=== PATIENT | female | born 1980 | race Caucasian/White ===

== ENCOUNTER 2017-03-09 18:37 | Emergency (ER) | payer OTHER ==
[2017-03-09] MEDS ORDERED: ONDANSETRON 4 MG/2 ML VIAL IVP ONE (18:55)
[2017-03-09] MEDS ORDERED: NS 1,000 ML IV ONE (18:55)
[2017-03-09] MEDS ORDERED: ONDANSETRON 4 MG/2 ML VIAL ONE (18:56)
--- NOTE | 2017-03-09 18:57 | EDPHY ---
H & P Stated Complaint: N/V abdominal pain starting 0200 this morning Time Seen by Provider: 03/09/17 18:55 HPI/ROS: CHIEF COMPLAINT: Abdominal pain, nausea, vomiting HISTORY OF PRESENT ILLNESS: The patient presents the ED with acute abdominal pain, nausea and vomiting. The patient's symptoms began at 2 o'clock today. The patient has a history of Crohn disease but reports this pain is not typical of her Crohn's exacerbations. The patient denies any abdominal surgery. The patient reports her pain is moderate and located in her epigastric area. The patient denies radiation of the pain. She denies fever or dysuria. The patient denies prior history of pancreatitis. She denies significant NSAID use or alcohol consumption. REVIEW OF SYSTEMS: A comprehensive 10 point review of systems is otherwise negative aside from elements mentioned in the history of present illness. Source: Patient Exam Limitations: No limitations - Personal History LMP (Females 10-55): Over 28 Days Ago Current Tetanus/Diphtheria Vaccine: Yes Current Tetanus Diphtheria and Acellular Pertussis (TDAP): Yes Tetanus Vaccine Date: < 10 years - Medical/Surgical History Hx Asthma: No Hx Chronic Respiratory Disease: No Hx Diabetes: No Hx Cardiac Disease: No Hx Renal Disease: No Hx Cirrhosis: No Hx Alcoholism: No Hx HIV/AIDS: No Hx Splenectomy or Spleen Trauma: No Other PMH: Crohn's disease - Social History Smoking Status: Never smoked - Physical Exam Exam: General Appearance: Alert, mild discomfort secondary to pain Eyes: Pupils equal and round no pallor or injection ENT, Mouth: Mucous membranes moist Respiratory: There are no retractions, lungs are clear to auscultation Cardiovascular: Regular rate and rhythm Gastrointestinal: Tenderness to palpation in the epigastric area, normal bowel sounds, no right lower quadrant tenderness, no right upper quadrant tenderness, no peritoneal signs Neurological: A&O, normal motor function, normal sensory exam, normal cranial nerves Skin: Warm and dry, no rashes Musculoskeletal: Neck is supple nontender Extremities: symmetrical, full range of motion Constitutional: Initial Vital Signs Temperature (C) 36.8 C 03/09/17 18:39 Heart Rate 101 H 03/09/17 18:39 Respiratory Rate 20 03/09/17 18:39 Blood Pressure 116/85 H 03/09/17 18:39 O2 Sat (%) 97 03/09/17 18:39 O2 Delivery Mode Room Air Allergies/Adverse Reactions: No Known Allergies Allergy (Unverified 03/09/17 18:39) Home Medications: Medication Instructions Recorded Control 03/09/17 Lialda 03/09/17 Ondansetron Odt [Zofran Odt] 4 mg PO Q4PRN PRN #20 tab 03/09/17 Medical Decision Making - Diagnostics Imaging Results: Imaging Impressions Abdomen CT 03/09/17 20:09 Impression: Probable gastritis. Otherwise, unremarkable CT of the abdomen and pelvis with IV contrast. Results called and discussed with Rickey Banegas MD on March 09, 2017 at 2101 hours. ED Course/Re-evaluation: The patient had an IV established. She received a L of normal saline for volume depletion and vomiting. She received 4 mg of IV Zofran and 4 mg of IV morphine. The patient's laboratory studies [place] [address]. The patient's serum chemistries, lipase and liver function test are all within normal limits. The patient was reexamined by myself at 8:00 p.m.. She initially had some improvement of her symptoms after receiving IV morphine however has developed recurrence of her pain. She continues to have tenderness in her epigastrium and mid abdominal area. Given her history of Crohn's disease and leukocytosis coupled with her unexplained pain a CT scan of the abdomen pelvis with IV contrast was ordered to evaluate for possible complications of her Crohn's disease including perforation, obstruction or abscess. CT scan of the abdomen pelvis demonstrates evidence of gastritis. There is no evidence of an additional intra-abdominal process such as appendicitis, perforation or obstruction. I ordered a GI cocktail and IV Pepcid at 9:10 p.m.. I re-evaluated the patient at 10:00 p.m.. She is feeling much better would like to be discharged home. She will be given a prescription for Zofran. Differential Diagnosis: Differential diagnosis considered includes gastritis, gastroenteritis, perforation, obstruction, intra-abdominal abscess, pancreatitis, cholelithiasis - Data Points Laboratory Results: Laboratory Results 03/09/17 18:52 03/09/17 18:52 03/09/17 03/09/17 03/09/17 18:52 18:52 18:52 WBC 18.15 10^3/uL H 10^3/uL (3.80-9.50) RBC 4.51 10^6/uL 10^6/uL (4.18-5.33) Hgb 13.9 g/dL g/dL (12.6-16.3) Hct 41.2 % % (38.0-47.0) MCV 91.4 fL fL (81.5-99.8) MCH 30.8 pg pg (27.9-34.1) MCHC 33.7 g/dL g/dL (32.4-36.7) RDW 13.3 % % (11.5-15.2) Plt Count 287 10^3/uL 10^3/uL (150-400) MPV 9.8 fL fL (8.7-11.7) Neut % (Auto) 92.3 % H % (39.3-74.2) Lymph % (Auto) 4.4 % L % (15.0-45.0) [place] % (Auto) 2.7 % L % (4.5-13.0) Eos % (Auto) 0.0 % L % (0.6-7.6) Baso % (Auto) 0.2 % L % (0.3-1.7) Nucleat RBC Rel Count 0.0 % % (0.0-0.2) Absolute Neuts (auto) 16.76 10^3/uL H 10^3/uL (1.70-6.50) Absolute Lymphs (auto) 0.79 10^3/uL L 10^3/uL (1.00-3.00) Absolute Monos (auto) 0.49 10^3/uL 10^3/uL (0.30-0.80) Absolute Eos (auto) 0.00 10^3/uL L 10^3/uL (0.03-0.40) Absolute Basos (auto) 0.03 10^3/uL 10^3/uL (0.02-0.10) Absolute Nucleated RBC 0.00 10^3/uL 10^3/uL (0-0.01) Immature Gran % 0.4 % % (0.0-1.1) Immature Gran # 0.08 10^3/uL 10^3/uL (0.00-0.10) Sodium 138 mEq/L mEq/L (134-144) Potassium 4.1 mEq/L mEq/L (3.5-5.2) Chloride 104 mEq/L mEq/L (97-110) Carbon Dioxide 21 mEq/l L mEq/l (22-31) Anion Gap 13 mEq/L mEq/L (8-16) BUN 11 mg/dL mg/dL (7-23) Creatinine 0.8 mg/dL mg/dL (0.6-1.0) Estimated GFR > 60 Glucose 122 mg/dL H mg/dL (70-100) Calcium 9.4 mg/dL mg/dL (8.5-10.4) Total Bilirubin 0.9 mg/dL mg/dL (0.1-1.4) Conjugated Bilirubin 0.3 mg/dL mg/dL (0.0-0.5) Unconjugated Bilirubin 0.6 mg/dL mg/dL (0.0-1.1) AST 19 IU/L IU/L (14-46) ALT 27 IU/L IU/L (9-52) Alkaline Phosphatase 58 IU/L IU/L (38-126) Total Protein 7.5 g/dL g/dL (6.3-8.2) Albumin 4.5 g/dL g/dL (3.5-5.0) Lipase 53 IU/L IU/L (23-300) Beta HCG, Qual NEGATIVE Medications Given: Discontinued Medications Al Hydroxide/Mg Hydroxide (Maalox Susp) 30 ml PO ONCE ONE Stop: 03/09/17 21:00 Last Admin: 03/09/17 21:13 Dose: 30 ml Hyoscyamine Sulfate (Levsin, Hyomax-Sl) 0.25 mg PO ONCE ONE Stop: 03/09/17 21:00 Last Admin: 03/09/17 21:13 Dose: 0.25 mg Sodium Chloride (Ns) 1,000 mls @ 0 mls/hr IV ONCE ONE; Wide Open PRN Reason: Protocol Stop: 03/09/17 18:56 Last Admin: 03/09/17 18:57 Dose: 1,000 mls Famotidine/Sodium Chloride (Pepcid 20 Mg (Premix)) 50 mls @ 200 mls/hr IV EDNOW ONE Stop: 03/09/17 21:13 Last Admin: 03/09/17 21:13 Dose: 50 mls Lidocaine (Lidocaine 2% Viscous) 15 ml PO ONCE ONE Stop: 03/09/17 21:00 Last Admin: 03/09/17 21:13 Dose: 15 ml Morphine Sulfate (Morphine) 4 mg IVP EDNOW ONE Stop: 03/09/17 19:07 Last Admin: 03/09/17 19:27 Dose: 4 mg Ondansetron HCl (Zofran) 4 mg IVP EDNOW ONE Stop: 03/09/17 18:56 Last Admin: 03/09/17 18:58 Dose: 4 mg Departure - Departure Disposition: Home, Routine, Self-Care Clinical Impression: Abdominal pain Qualifiers: Abdominal location: epigastric Qualified Code(s): R10.13 - Epigastric pain Gastritis Qualifiers: Gastritis type: unspecified gastritis Chronicity: acute Gastritis bleeding: without bleeding Qualified Code(s): K29.00 - Acute gastritis without bleeding Condition: Good Instructions: Ondansetron (By mouth), Gastritis (ED) Additional Instructions: 1. Zofran as needed for nausea. 2. Please begin Zantac 150 mg twice daily. 3. Liquid and diet for next several days. 4. Please return to the ED for severe abdominal pain, fever, vomiting, worsening symptoms or other concerns. 5. Please follow up with your regular golf range attendant Dr. Juan Jose Singh as needed. Referrals: Juan Jose Singh MD [Medical Doctor] - As per Instructions Prescriptions: Ondansetron Odt [Zofran Odt] 4 mg PO Q4PRN PRN #20 tab PRN Reason: For Nausea
[2017-03-09 19:00] LABS: % IMMATURE GRANULYOCYTES 0.4 % (0.0-1.1); ABSOLUTE IMMATURE GRANULOCYTES 0.08 10^3/uL (0.00-0.10); ADD DIFF? NO; ADD MORPH? NO; ADD SCAN? NO; ATYPICAL LYMPHOCYTE FLAG 0 (0-99); FRAGMENT RBC FLAG 0 (0-99); HEMATOCRIT 41.2 % (38.0-47.0); HEMOGLOBIN 13.9 g/dL (12.6-16.3); LEFT SHIFT FLG 0 (0-99); LIPEMIA HEMOLYSIS FLAG 80 (0-99); MEAN CELL HEMOGLOBIN 30.8 pg (27.9-34.1); MEAN CELL HEMOGLOBIN CONCENTR. 33.7 g/dL (32.4-36.7); MEAN CELL VOLUME 91.4 fL (81.5-99.8); MEAN PLATELET VOLUME 9.8 fL (8.7-11.7); PLATELET CLUMPS FLAG 0 (0-99); PLATELET COUNT 287 10^3/uL (150-400); RED BLOOD CELL COUNT 4.51 10^6/uL (4.18-5.33); RED CELL DISTRIBUTION WIDTH 13.3 % (11.5-15.2)
[2017-03-09 19:13] LABS: ALANINE AMINOTRANSFERASE 27 IU/L (9-52); ALBUMIN 4.5 g/dL (3.5-5.0); ALKALINE PHOSPHATASE 58 IU/L (38-126); ANION GAP 13 mEq/L (8-16); ASPARTATE AMINOTRANSFERASE 19 IU/L (14-46); BILIRUBIN,TOTAL 0.9 mg/dL (0.1-1.4); BILIRUBIN-CONJUGATED 0.3 mg/dL (0.0-0.5); BILIRUBIN-UNCONJUGATED 0.6 mg/dL (0.0-1.1); CALCIUM 9.4 mg/dL (8.5-10.4); CARBON DIOXIDE 21 mEq/l (22-31); CHLORIDE 104 mEq/L (97-110); CREATININE 0.8 mg/dL (0.6-1.0); GLOMERULAR FILTRATION RATE > 60; GLUCOSE 122 mg/dL (70-100); POTASSIUM 4.1 mEq/L (3.5-5.2); SODIUM 138 mEq/L (134-144); TOTAL PROTEIN 7.5 g/dL (6.3-8.2)
[2017-03-09] MEDS ORDERED: IOPAMIDOL (ISOVUE-300) 100 ML BTL ONE (20:15)
[2017-03-09] MEDS ORDERED: MAG HYDROX/AL HYDROX/SIMETH 30 ML UDCUP PO ONE (20:59)
[2017-03-09] MEDS ORDERED: HYOSCYAMINE SULFATE 0.125 MG TAB PO ONE (20:59)
[2017-03-09] MEDS ORDERED: FAMOTIDINE 20 MG/NACL 50 ML IV ONE (20:59)
[2017-03-09] MEDS ORDERED: LIDOCAINE 2% VISCOUS 15 ML UDCUP PO ONE (20:59)
[2017-03-09] MEDS ORDERED: ONDANSETRON 4MG PREPACK#2 BTL TAKEHOME ONE (21:22)
[2017-03-09 22:11] VITALS: BP 100/50; PULSE 60; RESP 16; TEMP 97.7; O2SAT 96
== END 2017-03-09 22:08 | disposition home or self-care (01) ==
PROC: 3E0337Z Introduction of Electrolytic and Water Balance Substance into Peripheral Vein, Percutaneous Approach (ICD-10-PCS; principal; 2017-03-09)
DX: K29.00 Acute gastritis without bleeding (principal); E86.9 Volume depletion, unspecified
CPT/HCPCS: 96374; J2405; Q9967

== ENCOUNTER 2018-11-15 12:58 | Emergency (ER) | payer OTHER ==
[2018-11-15] MEDS ORDERED: fentaNYL 100 MCG/2 ML INJ IVP ONE (13:08)
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
[2018-11-15] MEDS ORDERED: NS 1,000 ML IV ONE (13:25)
[2018-11-15] MEDS ORDERED: PROPOFOL 200 MG/20 ML VIAL ONE ×2 (13:29→13:35)
[2018-11-15] MEDS ORDERED: ONDANSETRON 4 MG/2 ML VIAL ONE (13:29)
[2018-11-15] MEDS ORDERED: ONDANSETRON 4 MG/2 ML VIAL IVP ONE (13:30)
[2018-11-15] MEDS ORDERED: PROPOFOL 200 MG/20 ML VIAL IVP ONE ×2 (13:38→13:42)
[2018-11-15 14:55] VITALS: BP 119/69
== END 2018-11-15 14:55 | disposition home or self-care (01) ==
LOC: EDUNIT#
PROC: 0SSFXZZ Reposition Right Ankle Joint, External Approach (ICD-10-PCS; principal; 2018-11-15)
DX: S82.891A Other fracture of right lower leg, initial encounter for closed fracture (principal); S93.04XA Dislocation of right ankle joint, initial encounter; V18.0XXA Pedal cycle driver injured in noncollision transport accident in nontraffic accident, initial encounter; Y93.55 Activity, bike riding; Y92.480 Sidewalk as the place of occurrence of the external cause
CPT/HCPCS: 96374; J2405; J2704; J3010